=== PATIENT | male | born 1970 | race Two or more races ===

== ENCOUNTER 2022-07-07 08:17 | Outpatient (CLI) | payer OTHER | END 2022-07-07 08:18 | disposition home or self-care (01) | LOC: LAB 08:17 | PROVIDERS: ATTEND Surgery | DX: K42.9 Umbilical hernia without obstruction or gangrene (principal); Z01.818 Encounter for other preprocedural examination ==

== ENCOUNTER 2022-07-20 07:47 | Day surgery (SDC) | payer OTHER ==
[~2022-07-20] VITALS: Ht 177.8 cm; Wt 77.1 kg
[~2022-07-20 07:47] MED LIST: COZAAR50 MG PO
[2022-07-20] MEDS ORDERED: PERCOCET 5-3251 EACH PO (16:45)
[2022-07-20] MEDS ORDERED: NEURONTIN600 M1 PO (16:45)
[2022-07-20] MEDS ORDERED: POLY119PG PO (16:46)
== END 2022-07-20 19:55 | disposition home or self-care (01) ==
LOC: CIR.AMB 07:47
PROVIDERS: ATTEND Surgery
DX: K42.0 Umbilical hernia with obstruction, without gangrene (principal); Z86.16 Personal history of COVID-19; I10 Essential (primary) hypertension
CPT/HCPCS: 49653; C1781